=== PATIENT | male | born 1980 | race Caucasian/White ===

== ENCOUNTER 2019-06-03 16:19 | Emergency (ER) | payer BC ==
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
== END 2019-06-03 16:52 | disposition home or self-care (01) ==
LOC: JP.ED 16:19
DX: S63.601A Unspecified sprain of right thumb, initial encounter (principal); X50.9XXA Other and unspecified overexertion or strenuous movements or postures, initial encounter
CPT/HCPCS: 99282

== ENCOUNTER 2025-02-22 06:23 | Day surgery (SDC) | payer BC ==
[2025-02-22] MEDS: Lactated Ringers 1,000 ML IV SCH (06:45)
[2025-02-22] MEDS ORDERED: fentaNYL 100 MCG/2 ML SDV ONE (07:03)
[2025-02-22] MEDS ORDERED: Propofol 200 MG/20 ML SDV ONE ×2 (07:03→07:39)
[2025-02-22] MEDS ORDERED: Midazolam 1 MG/ML 2 ML SDV ONE (07:03)
== END 2025-02-22 08:40 | disposition home or self-care (01) ==
LOC: JP.SDS 06:23
PROVIDERS: ATTEND Family Medicine
DX: Z12.11 Encounter for screening for malignant neoplasm of colon (principal); D12.5 Benign neoplasm of sigmoid colon; K57.30 Diverticulosis of large intestine without perforation or abscess without bleeding; I10 Essential (primary) hypertension; E78.5 Hyperlipidemia, unspecified
CPT/HCPCS: 00811-QZ; 45385; 88305; J2250; J2704; J3010; J7120